=== PATIENT | female | born 1945 | race Caucasian/White ===

== ENCOUNTER 2017-04-08 09:31 | Inpatient (IN) | payer MEDICARE, BC ==
--- NOTE | 2017-04-08 10:05 | RAD ---
HISTORY: Chest pain COMPARISONS: March 27, 2006 VIEWS: 1: frontal portable view of the chest at 9:55 AM FINDINGS: LINES AND TUBES: None. CARDIOMEDIASTINAL SILHOUETTE: The cardiomediastinal silhouette is normal for portable technique. PLEURA: The costophrenic angles are sharp. No pleural abnormalities are noted. LUNG PARENCHYMA: The lungs are clear. ABDOMEN: The upper abdomen is clear. There is no subphrenic gas. BONES AND SOFT TISSUES: No bone or soft tissue abnormalities are noted. IMPRESSION: NO ACTIVE CARDIOPULMONARY DISEASE.
[2017-04-08 10:34] LABS: ABS Basophils 0 10^3/ul (0-0.2); ABS Eosinophils 0.1 10^3/ul (0-0.6); ABS Lymphocytes 1.8 10^3/ul (1.0-4.8); ABS Monocytes 0.7 10^3/ul (0-0.8); ABS Nucleated RBC 0 10^3/ul; Hematocrit 42 % (35-47); Hemoglobin 13.9 g/dl (12.0-16.0); Lymphocyte % 15.7 % (25-47); Mean Corpuscular HGB Conc 33 g/dl (31-36); Mean Corpuscular Hemoglobin 30 pg (27-31); Mean Corpuscular Volume 89 fL (80-97); Mean Platelet Volume 8 um3 (7.4-10.4); Nucleated Red Blood Cells % 0; Platelet Count 299 10^3/ul (150-450); Red Cell Distribution Width 14 % (10.5-15); White Blood Count 11.6 10^3/ul (3.5-10.8)
[2017-04-08 10:50] LABS: EGFR Non-African American 75.2 (>60)
[2017-04-08] MEDS ORDERED: Nitroglycerin TAB 0.4 MG* 0.4 MG TAB SL ONE (15:25)
[2017-04-08] MEDS ORDERED: Famotidine IV * 20 MG in NS 0.9% 100 ML* 100 ML IVPB SCH (15:34)
[2017-04-08] MEDS: Famotidine IV* 10 MG/ML 2 ML (20 mg) IV SCH ×2 (16:13→20:17)
[2017-04-08] MEDS ORDERED: Ondansetron INJ* 2 MG/ML VIAL IV PRN (17:15)
[2017-04-08] MEDS ORDERED: Morphine INJ* 2 MG/ML 1 ML SYRINGE (TWO MG - NEW SYRINGE VERSION) ONE (17:26)
[2017-04-08] MEDS: Morphine INJ* 2 MG/ML 1 ML SYRINGE (TWO MG - NEW SYRINGE VERSION) IV PRN (17:27)
--- NOTE | 2017-04-08 17:30 | ED ---
Claude Morales Angela, scribed for Catracho Pinedo MD on 04/08/17 at 0953 . HPI Chest Pain - HPI Summary HPI Summary: This pt is a 72 y/o female [facility] c/o chest pain since yesterday. At onset of her pain, she was at rest. She states she had difficult sleeping when laying down secondary to pain. Pt describes her pain as burning. Additionally notes nausea and vomiting this morning. Pt rates her pain 6 or 7 out of 10 in severity. She denies abd pain, dizziness, SOB. - History of Current Complaint Chief Complaint: EDChestPainROMI Time Seen by Provider: 04/08/17 09:44 Hx Obtained From: Patient Onset/Duration: Started Hours Ago, Still Present Timing: Constant, Lasting Hours Current Severity: Moderate Pain Intensity: 6 Pain Scale Used: 0-10 Numeric Chest Pain Location: Diffuse Chest Pain Radiates: No Character: Burning Aggravating Factor(s): Nothing Alleviating Factor(s): Nothing Associated Signs and Symptoms: Positive: Chest Pain, Nausea, Vomiting, Other: - NEG: dizziness. Negative: Shortness of Breath, Abdominal Pain - Allergy/Home Medications Allergies/Adverse Reactions: Allergies Allergy/AdvReac Type Severity Reaction Status Date / Time No Known Allergies Allergy Verified 03/02/14 19:16 Home Medications: Home Medications ALPRAZolam TAB* [Xanax TAB*] 0.5 mg PO BID PRN 04/08/17 [History Confirmed 04/08] Aspirin EC Low Dose* [Ecotrin EC Low Dose 81 MG*] 81 mg PO DAILY 04/08/17 [ History Confirmed 04/08/17] FLUoxetine CAP* [PROzac CAP*] 20 mg PO BID 04/08/17 [History Confirmed 04/08/17] Simvastatin TAB(NF) [Zocor(NF)] 20 mg PO BEDTIME 04/08/17 [History Confirmed ] amLODIPine TAB* [Norvasc 5 mg TAB*] 5 mg PO DAILY 04/08/17 [History Confirmed ] PMH/Surg Hx/FS Hx/Imm Hx Endocrine/Hematology History: Denies: Hx Diabetes Cardiovascular History: Denies: Hx Hypertension, Hx Pacemaker/ICD Sensory History: Denies: Hx Hearing Aid Psychiatric History: Denies: Hx Panic Disorder - Surgical History Surgery Procedure, Year, and Place: 1997- (1) GDC 10 SOFT SR & (2)360 - CONDITIONAL 5 UP TO 3T ANUERYSM COILS (PER 2012 REFERENCE MANUAL FOR MRI SAFETY) Infectious Disease History: No Infectious Disease History: Denies: Traveled Outside the [place] in Last 30 Days - Family History Known Family History: Positive: Cardiac Disease - Father: MS and CVA - Social History Alcohol Use: None Substance Use Type: Reports: None Smoking Status (MU): Former Smoker Review of Systems Negative: Fever, Chills Positive: Chest Pain Negative: Shortness Of Breath Positive: Vomiting, Nausea. Negative: Abdominal Pain Neurological: Other - NEG: dizziness All Other Systems Reviewed And Are Negative: Yes Physical Exam - Summary Physical Exam Summary: VITAL SIGNS: Reviewed. GENERAL: Patient is a well-developed and nourished female who is lying comfortable in the stretcher. Patient is not in any acute respiratory distress. HEAD AND FACE: No signs of trauma. No ecchymosis, hematomas or skull depressions. No sinus tenderness. EYES: PERRLA, EOMI x 2, No injected conjunctiva, no nystagmus. EARS: Hearing grossly intact. Ear canals and tympanic membranes are within normal limits. MOUTH: Oropharynx within normal limits. NECK: Supple, trachea is midline, no adenopathy, no JVD, no carotid bruit, no c- spine tenderness, neck with full ROM. CHEST: Symmetric, no tenderness at palpation LUNGS: Clear to auscultation bilaterally. No wheezing or crackles. CVS: Regular rate and rhythm, S1 and S2 present, no murmurs or gallops appreciated. ABDOMEN: Soft, non-tender. No signs of distention. No rebound no guarding, and no masses palpated. Bowel sounds are normal. EXTREMITIES: FROM in all major joints, no edema, no cyanosis or clubbing. NEURO: Alert and oriented x 3. No acute neurological deficits. Speech is normal and follows commands. SKIN: Dry and warm Triage Information Reviewed: Yes Vital Signs On Initial Exam: Initial Vitals Temp Pulse Resp BP Pulse Ox 98.6 F 90 18 180/92 100 04/08/17 09:33 04/08/17 09:33 04/08/17 09:33 04/08/17 09:33 04/08/17 09:33 Vital Signs Reviewed: Yes Diagnostics - Vital Signs Vital Signs Temp Pulse Resp BP Pulse Ox 01/22/18 09:33 98.6 F 90 18 180/92 100 - Laboratory Lab Results: Lab Results 04/08/17 04/08/17 04/08/17 Range/Units 10:12 10:12 10:12 WBC (3.5-10.8) 10^3/ul RBC (4.0-5.4) 10^6/ul Hgb (12.0-16.0) g/dl Hct (35-47) % MCV (80-97) fL MCH (27-31) pg MCHC (31-36) g/dl RDW (10.5-15) % Plt Count (150-450) 10^3/ul MPV (7.4-10.4) um3 Neut % (Auto) (38-83) % Lymph % (Auto) (25-47) % Giles % (Auto) (1-9) % Eos % (Auto) (0-6) % Baso % (Auto) (0-2) % Absolute Neuts (auto) (1.5-7.7) 10^3/ul Absolute Lymphs (auto) (1.0-4.8) 10^3/ul Absolute Monos (auto) (0-0.8) 10^3/ul Absolute Eos (auto) (0-0.6) 10^3/ul Absolute Basos (auto) (0-0.2) 10^3/ul Absolute Nucleated RBC 10^3/ul Nucleated RBC % APTT 31.5 (26.0-36.3) seconds Sodium 137 (133-145) mmol/L Potassium 3.9 (3.5-5.0) mmol/L Chloride 105 (101-111) mmol/L Carbon Dioxide 24 (22-32) mmol/L Anion Gap 8 (2-11) mmol/L BUN 25 H (6-24) mg/dL Creatinine 0.76 (0.51-0.95) mg/dL Est GFR ( Amer) 96.8 (>60) Est GFR (Non-Af Amer) 75.2 (>60) BUN/Creatinine Ratio 32.9 H (8-20) Glucose 110 H (70-100) mg/dL Calcium 9.8 (8.6-10.3) mg/dL Magnesium 2.0 (1.9-2.7) mg/dL Total Bilirubin 0.30 (0.2-1.0) mg/dL AST 14 (13-39) U/L ALT 13 (7-52) U/L Alkaline Phosphatase 68 (34-104) U/L Total Creatine Kinase 45 (10-223) U/L CK-MB (CK-2) 2.7 (0.6-6.3) ng/mL Troponin I 0.07 H* (<0.04) ng/mL B-Natriuretic Peptide 139 H ( - 100) pg/mL Total Protein 7.1 (6.4-8.9) g/dL Albumin 4.2 (3.2-5.2) g/dL Globulin 2.9 (2-4) g/dL Albumin/Globulin Ratio 1.4 (1-3) TSH 1.81 (0.34-5.60) mcIU/mL Thyroxine (T4) 9.21 (6.09-12.23) mcg/mL 04/08/17 Range/Units 10:12 WBC 11.6 H (3.5-10.8) 10^3/ul RBC 4.70 (4.0-5.4) 10^6/ul Hgb 13.9 (12.0-16.0) g/dl Hct 42 (35-47) % MCV 89 (80-97) fL MCH 30 (27-31) pg MCHC 33 (31-36) g/dl RDW 14 (10.5-15) % Plt Count 299 (150-450) 10^3/ul MPV 8 (7.4-10.4) um3 Neut % (Auto) 77.1 (38-83) % Lymph % (Auto) 15.7 L (25-47) % Giles % (Auto) 5.8 (1-9) % Eos % (Auto) 1.0 (0-6) % Baso % (Auto) 0.4 (0-2) % Absolute Neuts (auto) 9.0 H (1.5-7.7) 10^3/ul Absolute Lymphs (auto) 1.8 (1.0-4.8) 10^3/ul Absolute Monos (auto) 0.7 (0-0.8) 10^3/ul Absolute Eos (auto) 0.1 (0-0.6) 10^3/ul Absolute Basos (auto) 0 (0-0.2) 10^3/ul Absolute Nucleated RBC 0 10^3/ul Nucleated RBC % 0 APTT (26.0-36.3) seconds Sodium (133-145) mmol/L Potassium (3.5-5.0) mmol/L Chloride (101-111) mmol/L Carbon Dioxide (22-32) mmol/L Anion Gap (2-11) mmol/L BUN (6-24) mg/dL Creatinine (0.51-0.95) mg/dL Est GFR ( Amer) (>60) Est GFR (Non-Af Amer) (>60) BUN/Creatinine Ratio (8-20) Glucose (70-100) mg/dL Calcium (8.6-10.3) mg/dL Magnesium (1.9-2.7) mg/dL Total Bilirubin (0.2-1.0) mg/dL AST (13-39) U/L ALT (7-52) U/L Alkaline Phosphatase (34-104) U/L Total Creatine Kinase (10-223) U/L CK-MB (CK-2) (0.6-6.3) ng/mL Troponin I (<0.04) ng/mL B-Natriuretic Peptide ( - 100) pg/mL Total Protein (6.4-8.9) g/dL Albumin (3.2-5.2) g/dL Globulin (2-4) g/dL Albumin/Globulin Ratio (1-3) TSH (0.34-5.60) mcIU/mL Thyroxine (T4) (6.09-12.23) mcg/mL Result Diagrams: 04/08/17 10:12 04/08/17 10:12 Lab Statement: Any lab studies that have been ordered have been reviewed, and results considered in the medical decision making process. - Radiology Chest XR Xray Interpretation: No Acute Changes - IMPRESSION: No active cardiopulmonary disease. Dr. Pinedo has reviewed this radiology report. Radiology Interpretation Completed By: Radiologist - EKG 0905 Cardiac Rate: NL EKG Rhythm: Sinus Rhythm - at 73 bpm EKG Interpretation: No ST elevations. Chest Pain Course/Dx - Course Course Of Treatment: This pt is a 72 y/o female presenting to [facility] c/o chest pain since yesterday. At onset of her pain, she was at rest. She states she had difficult sleeping when laying down secondary to pain. Pt describes her pain as burning. Additionally notes nausea and vomiting this morning. Pt rates her pain 6 or 7 out of 10 in severity. She denies abd pain, dizziness, SOB. Test results without any significant abnormalities, except for WBC of 11.6, troponin of 0.07, BNP of 139. In the ED course, the pts chest pain is rated 1/10 and most of her symptoms have resolved. I discussed pts case with Dr. Quintanilla, hospitalist, because of her multiple comorbidities to be admitted to rule out acute coronary syndrome. Pt is hemodynamically stable, alert and oriented x3. - Chest Pain Differential Diagnosis/HQI/PQRI: Acute MS, ACS, Angina, CHF, Chest Wall, GI Disease, Lower Respiratory Infection - Diagnoses Provider Diagnoses: Chest pain, rule out ACS - Provider Notifications Discussed Care Of Patient With: Saarvanan Quintanilla Time Discussed With Above Provider: 11:31 Instructed by Provider To: Other - I discussed pt care with Dr. Quintanilla, hospitalist, who has agreed to admit the pt. Discharge - Discharge Plan Condition: Stable Disposition: ADMITTED TO [facility] The documentation as recorded by the Claude cain Angela accurately reflects the service I personally performed and the decisions made by me, Catracho Pinedo MD.
[2017-04-08] MEDS: Nitroglycerin TAB 0.4 MG* 0.4 MG TAB SL PRN ×2 (17:55→18:32)
[2017-04-08] MEDS ORDERED: Metoprolol Tartrate TAB* 25 MG ONE (19:57)
[2017-04-08] MEDS ORDERED: Nitroglycerin 2% OINT* 1 GM PAK ONE (19:59)
[2017-04-08] MEDS: Metoprolol Tartrate TAB* 25 MG PO SCH (20:08)
[2017-04-08] MEDS: Nitroglycerin 2% OINT* 1 GM PAK TOPICAL SCH (20:35)
[2017-04-08] MEDS ORDERED: Atorvastatin* 10 MG TAB PO SCH (21:00)
--- NOTE | 2017-04-08 22:09 | HP ---
HISTORY AND PHYSICAL: DATE OF ADMISSION: 04/08/17 ADMITTING PHYSICIAN: Familia Quintanilla MD * (DICTATED BY SOHAIL GIVENS NP) PRIMARY CARE PHYSICIAN: Dr. Zambrano. HISTORY OF PRESENT ILLNESS: This is a very pleasant 72-year-old female patient who reports having gone to the Urgent Care earlier in the day today for complaints of midsternal chest burning and pressure. The patient states she has experienced similar symptoms earlier in the month, had gone to the Urgent Care then as well and received a prescription for proton pump inhibitor and was told to follow up with her primary care physician. The patient states that she ran out of her medications and began to feel that burning chest sensation again and decided to go back to Urgent Care in hopes of getting another prescription for proton pump inhibitor. However, when she went there, she did receive an EKG and was told that she had changes on her EKG and she was referred to the emergency department for further evaluation. Upon arriving in the emergency department, an EKG was obtained as well as troponins. EKG showed some nonspecific or perhaps anterolateral depressions and also an initial troponin of 0.09. The patient was referred for inpatient admission to rule out acute coronary syndrome. PAST MEDICAL HISTORY: Significant for hypertension, hyperlipidemia, anxiety, cerebral aneurysm. Short-term TIA postoperatively after her surgery for aneurysm. The patient has history of pacemaker and defibrillator, insertion date unknown. PAST SURGICAL HISTORY: Significant for coil with intercerebral hemorrhage rupture of aneurysm in 2006. MEDICATIONS AT HOME: Include: 1. Simvastatin 20 mg daily. 2. Norvasc 5 mg daily. 3. Prozac 40 mg daily. 4. Aspirin 325 mg daily. 5. Xanax 0.5 mg 2 times a day as needed. ALLERGIES: The patient has no known drug allergies. FAMILY HISTORY: Significant for father with coronary artery disease and myocardial infarction. SOCIAL HISTORY: The patient has a remote history of smoking. States that she did smoke from a young age and quit in 2006 when she had her cerebral aneurysm. Does not drink any alcohol, denies any illicit drug use. She is retired. Used to work for the [employer]. REVIEW OF SYSTEMS: The patient denies any headache, fever, fatigue, or chills. Complains of midsternal chest burning sensation, upon exam radiating to the left axilla. Some epigastric pain as well. No nausea, no vomiting. No urinary complaints. No arthralgias or myalgias and no further constitutional complaints. PHYSICAL EXAMINATION GENERAL: The patient is awake and alert. Mildly anxious, but no acute distress. VITAL SIGNS: Temperature 98.0, heart rate 79, respiratory rate 24, oxygen saturation 96% on room air, blood pressure 148/61. HEENT: The patient is atraumatic, normocephalic. PERRLA. Nonicteric sclera. NECK: Supple. Nontender. No JVD noted. No carotid bruits auscultated and no thyromegaly appreciated. LUNGS: Clear bilaterally to auscultation with no wheezing, rhonchi or rales. She is mildly diminished at the bases and clear otherwise throughout her lung hooper. CARDIOVASCULAR: S1, S2 are present. No murmurs, gallops or rubs appreciated. Rate and rhythm are regular. On telemetry, she is in regular sinus rhythm underlying with pacing. ABDOMEN: Soft, nontender, nondistended. Positive bowel sounds in all 4 quadrants. She is moderately obese. No hepatosplenomegaly appreciated. : Deferred. MUSCULOSKELETAL: There is no clubbing, no cyanosis, no edema. She has +2 distal pulses palpable and intact. Gross motor and sensation are also intact. NEUROLOGIC: She is grossly intact with no focal deficits. PSYCHIATRY: She is cooperative and appropriate, although mildly anxious. LABORATORY DATA: In the ED revealed WBC 11.6, RBC 4.7, hemoglobin 13.9, hematocrit 42, platelets 299. Chemistries: Sodium 137, potassium 3.9, chloride 105, carbon dioxide 24, BUN 25, creatinine 0.76, glucose 110. Calcium 9.8, magnesium 2.0, bilirubin 0.30. AST 14, ALT 13, alk phosphatase 68. CK-MB 2.7, troponin 0.07. Second troponin 0.16. BNP is 139, total protein 7.1, albumin 4.2, globulin 2.9. TSH is 1.81 and thyroxine is 9.21. APTT is 31.5. IMAGING: Chest x-ray shows no active cardiopulmonary disease. First EKG dated 09:36 this morning, shows sinus rhythm with a normal P axis, ventricular rate of , with an abnormal R-wave progression and early transition. V2 with borderline ST depression, lateral leads ST, aVL, V5 and V6. Followup EKG timed 1437 while she was having active chest pain shows sinus rhythm with a normal P axis, ventricular rate of , minimal ST depression in the anterolateral leads. AVL, V2 to V6 is baseline wander in lead V3. IMPRESSION: This is a 72-year-old female patient with active chest pain, borderline positive troponins, also has history of gastroesophageal reflux disease with recent history of ruptured cerebral aneurysm, now being admitted for chest pain, rule out acute coronary syndrome. The patient will be admitted inpatient, placed on telemetry. DIAGNOSES: 1. Chest pain: Rule out acute coronary syndrome. We have cycled 2 troponins already. She will have a third at 5:30 tonight. She will receive nitroglycerin to see if this relieves her chest pain. She is on telemetry. Followup EKG has been performed. I have had a discussion with Dr. Jayy Hughes from Cardiology. He is recommending n.p.o. after midnight depending on the third troponin. If it remains not too elevated, she will likely have Lexiscan in the morning. 2. Hypertension: She will be continued on her Norvasc. 3. History of hyperlipidemia: She will be continued on her simvastatin. 4. History of gastroesophageal reflux disease: I have started her on IV H2 antagonist 2 times a day to see also if this alleviates some of her symptoms. 5. History of anxiety: She will be continued on her Norvasc and her Xanax as needed. 6. History of aneurysm with intracranial hemorrhage and coiling. The patient did say she had a transient ischemic attack in the past. She does take high dose aspirin 325 mg a day. She had her aspirin for today. We will wait until after her Lexiscan in the morning and then talk to Cardiology about continued aspirin usage. The rest of patient's course will be determined by further diagnostic, laboratories and any other input from other providers as warranted during this admission. We will continue to monitor the patient closely and identify any other issues as they come up. SOHAIL GIVENS NP [id number]/[facility] #: [id number] TOMMIE
[2017-04-08] MEDS: ALPRAZolam TAB* 0.5 MG PO PRN (23:12)
[2017-04-09] MEDS: Nitro Patch/OINT Remove PATCH OFF SCH (02:22)
[2017-04-09] MEDS ORDERED: Nitroglycerin TAB 0.4 MG* 0.4 MG TAB SL ONE (05:00)
[2017-04-09] MEDS: Metoprolol Tartrate TAB* 25 MG PO SCH ×3 (08:00→21:43)
[2017-04-09] MEDS: amLODIPine TAB* 5 MG PO SCH (08:01)
[2017-04-09] MEDS: Famotidine IV* 10 MG/ML 2 ML (20 mg) IV SCH ×2 (08:01→21:46)
[2017-04-09] MEDS: FLUoxetine CAP* 20 MG PO SCH (08:01)
--- NOTE | 2017-04-09 08:08 | PN ---
Subjective Date of Service: 04/09/17 Interval History: Patient seen and examined. Overnight notes/events reviewed. No chest pain this morning, NTG paste remains, no further sublingual given after 0430. Trops leveled off overnight at 0.23/0.22. Patient comfortable but states she is tired and didn't sleep much. Denies SOB, no n/v, no weakness or headache. No further complaints. Remains NPO for lexiscan this AM. Objective Active Medications: Alprazolam (Xanax Tab*) 0.5 mg PO BID PRN PRN Reason: ANXIETY Last Admin: 04/08/17 23:12 Dose: 0.5 mg Amlodipine Besylate (Norvasc Tab*) 5 mg PO DAILY [facility] Atorvastatin Calcium (Lipitor*) 10 mg PO BEDTIME [facility] Last Admin: 04/08/17 20:10 Dose: 10 mg Famotidine (Pepcid Iv*) 20 mg IV BID [facility] Last Admin: 04/08/17 20:17 Dose: 20 mg Fluoxetine HCl (Prozac Cap*) 40 mg PO DAILY [facility] Influenza Virus Vaccine (Fluarix *Quad* *) 0.5 ml IM .ONCE ONE Stop: 04/09/17 09:01 Metoprolol Tartrate (Lopressor Tab*) 12.5 mg PO 0900,2100 [facility] Last Admin: 04/09/17 08:00 Dose: Not Given Morphine Sulfate (Morphine Inj (Syringe)*) 2 mg IV Q2H PRN PRN Reason: PAIN Last Admin: 04/08/17 17:27 Dose: 2 mg Nitroglycerin (Nitroglycerin 2% Oint*) 0.5 inch TOPICAL 2014 [facility] PRN Reason: Protocol Last Admin: 04/08/17 20:35 Dose: Not Given Ondansetron HCl (Zofran Inj*) 4 mg IV Q6H PRN PRN Reason: NAUSEA Pharmacy Profile Note (Nitro Patch/Oint Remove*) 1 note PATCH OFF 214 [facility] Last Admin: 04/09/17 02:22 Dose: 1 note Vital Signs - 8 hr 04/09/17 04/09/17 04/09/17 01:10 03:42 07:45 Temperature 97.7 F 98.4 F Pulse Rate 73 76 Respiratory 16 16 16 Rate Blood Pressure 153/74 138/61 (mmHg) O2 Sat by Pulse 98 100 Oximetry Oxygen Devices in Use Now: Nasal Cannula - intermittent NC use @2L Appearance: Alert, NAD, comfortable, ambulatory Eyes: No Scleral Icterus, PERRLA Ears/Nose/Mouth/Throat: NL Teeth, Lips, Gums, Mucous Membranes Moist Neck: NL Appearance and Movements; NL JVP, Trachea Midline Respiratory: Symmetrical Chest Expansion and Respiratory Effort, Clear to Auscultation Cardiovascular: NL Sounds; No Murmurs; No JVD, RRR - telemetry reviewed, no ectopy overnight Extremities: No Edema, No Clubbing, Cyanosis Skin: No Rash or Ulcers Neurological: Alert and Oriented x 3 Result Diagrams: 04/08/17 10:12 04/08/17 10:12 Additional Lab and Data: Lab Results 04/08/17 04/08/17 04/08/17 Range/Units 10:12 10:12 10:12 WBC (3.5-10.8) 10^3/ul RBC (4.0-5.4) 10^6/ul Hgb (12.0-16.0) g/dl Hct (35-47) % MCV (80-97) fL MCH (27-31) pg MCHC (31-36) g/dl RDW (10.5-15) % Plt Count (150-450) 10^3/ul MPV (7.4-10.4) um3 Neut % (Auto) (38-83) % Lymph % (Auto) (25-47) % Barber % (Auto) (1-9) % Eos % (Auto) (0-6) % Baso % (Auto) (0-2) % Absolute Neuts (auto) (1.5-7.7) 10^3/ul Absolute Lymphs (auto) (1.0-4.8) 10^3/ul Absolute Monos (auto) (0-0.8) 10^3/ul Absolute Eos (auto) (0-0.6) 10^3/ul Absolute Basos (auto) (0-0.2) 10^3/ul Absolute Nucleated RBC 10^3/ul Nucleated RBC % APTT 31.5 (26.0-36.3) seconds Sodium 137 (133-145) mmol/L Potassium 3.9 (3.5-5.0) mmol/L Chloride 105 (101-111) mmol/L Carbon Dioxide 24 (22-32) mmol/L Anion Gap 8 (2-11) mmol/L BUN 25 H (6-24) mg/dL Creatinine 0.76 (0.51-0.95) mg/dL Est GFR ( Amer) 96.8 (>60) Est GFR (Non-Af Amer) 75.2 (>60) BUN/Creatinine Ratio 32.9 H (8-20) Glucose 110 H (70-100) mg/dL Calcium 9.8 (8.6-10.3) mg/dL Magnesium 2.0 (1.9-2.7) mg/dL Total Bilirubin 0.30 (0.2-1.0) mg/dL AST 14 (13-39) U/L ALT 13 (7-52) U/L Alkaline Phosphatase 68 (34-104) U/L Total Creatine Kinase 45 (10-223) U/L CK-MB (CK-2) 2.7 (0.6-6.3) ng/mL Troponin I 0.07 H* (<0.04) ng/mL B-Natriuretic Peptide 139 H ( - 100) pg/mL Total Protein 7.1 (6.4-8.9) g/dL Albumin 4.2 (3.2-5.2) g/dL Globulin 2.9 (2-4) g/dL Albumin/Globulin Ratio 1.4 (1-3) TSH 1.81 (0.34-5.60) mcIU/mL Thyroxine (T4) 9.21 (6.09-12.23) mcg/mL 04/08/17 Range/Units 10:12 WBC 11.6 H (3.5-10.8) 10^3/ul RBC 4.70 (4.0-5.4) 10^6/ul Hgb 13.9 (12.0-16.0) g/dl Hct 42 (35-47) % MCV 89 (80-97) fL MCH 30 (27-31) pg MCHC 33 (31-36) g/dl RDW 14 (10.5-15) % Plt Count 299 (150-450) 10^3/ul MPV 8 (7.4-10.4) um3 Neut % (Auto) 77.1 (38-83) % Lymph % (Auto) 15.7 L (25-47) % Barber % (Auto) 5.8 (1-9) % Eos % (Auto) 1.0 (0-6) % Baso % (Auto) 0.4 (0-2) % Absolute Neuts (auto) 9.0 H (1.5-7.7) 10^3/ul Absolute Lymphs (auto) 1.8 (1.0-4.8) 10^3/ul Absolute Monos (auto) 0.7 (0-0.8) 10^3/ul Absolute Eos (auto) 0.1 (0-0.6) 10^3/ul Absolute Basos (auto) 0 (0-0.2) 10^3/ul Absolute Nucleated RBC 0 10^3/ul Nucleated RBC % 0 APTT (26.0-36.3) seconds Sodium (133-145) mmol/L Potassium (3.5-5.0) mmol/L Chloride (101-111) mmol/L Carbon Dioxide (22-32) mmol/L Anion Gap (2-11) mmol/L BUN (6-24) mg/dL Creatinine (0.51-0.95) mg/dL Est GFR ( Amer) (>60) Est GFR (Non-Af Amer) (>60) BUN/Creatinine Ratio (8-20) Glucose (70-100) mg/dL Calcium (8.6-10.3) mg/dL Magnesium (1.9-2.7) mg/dL Total Bilirubin (0.2-1.0) mg/dL AST (13-39) U/L ALT (7-52) U/L Alkaline Phosphatase (34-104) U/L Total Creatine Kinase (10-223) U/L CK-MB (CK-2) (0.6-6.3) ng/mL Troponin I (<0.04) ng/mL B-Natriuretic Peptide ( - 100) pg/mL Total Protein (6.4-8.9) g/dL Albumin (3.2-5.2) g/dL Globulin (2-4) g/dL Albumin/Globulin Ratio (1-3) TSH (0.34-5.60) mcIU/mL Thyroxine (T4) (6.09-12.23) mcg/mL EKG Data: EKG INTERPRETATION ECG Report Patient Name ABDIAZIZ ADAMS Birthdate 1945 Sex F Order Number [id number] Date of ECG 04/09/2017 04:16:12 Interpretation Sinus rhythm.normal P axis, V-rate 60- 99 Borderline repolarization - BORDERLINE ECG - ECG NEEDS E-SIGNING Please [facility] to view the EKG image Assess/Plan/Problems-Billing Assessment: This is a 72 year old female with hx of HTN, ICH 2/2 aneurysm, anxiety and HLP that presented with midsternal chest burning, radiating to left axilla with positive troponins. - Patient Problems (1) Chest pain Code(s): R07.9 - CHEST PAIN, UNSPECIFIED SNOMED Code(s): 97857970 Comment: - Positive troponins - Required multiple doses of NTG, relief with NTG paste and morphine last night - Zofran for nausea PRN - O2 PRN - NPO for lexiscan today - Cardiology consulted - Hold BB this AM in light of stress test - TSH = 1.81 will check lipids (2) Hypertension Code(s): I10 - ESSENTIAL (PRIMARY) HYPERTENSION SNOMED Code(s): 45262989 Comment: - Continue norvasc - Hold metoprolol until after stress (3) Anxiety Code(s): F41.9 - ANXIETY DISORDER, UNSPECIFIED SNOMED Code(s): 97693656 Comment: - Continue prozac daily and xanax PRN (4) History of cerebral aneurysm repair Code(s): Z98.890 - OTHER SPECIFIED POSTPROCEDURAL STATES; Z86.79 - PERSONAL HISTORY OF OTHER DISEASES OF THE CIRCULATORY SYSTEM SNOMED Code(s): 453990394 Comment: - ICH in 2006, s/p coil in 2006, stable (5) GERD (gastroesophageal reflux disease) Code(s): K21.9 - GASTRO-ESOPHAGEAL REFLUX DISEASE WITHOUT ESOPHAGITIS SNOMED Code(s): 455800122 Comment: - Continue pepcid IV BID, transition to PO after cardiac workup complete Status and Disposition: Remain inpatient. Counseling and/or Coordination of Care Minutes: Coordinated with patient and AMY Cross
[2017-04-09] MEDS ORDERED: Pneumococcal *Vac Polyvalent 0.5 ML VIAL IM ONE (09:00)
[2017-04-09] MEDS ORDERED: Aspirin EC Low Dose* 81 MG TAB.EC PO SCH (09:00)
[2017-04-09] MEDS ORDERED: Influenza VAC *QUAD* 2017-18* 0.5 ML SYRINGE IM ONE (09:00)
[2017-04-09] MEDS ORDERED: Regadenoson* 0.4 MG/5 ML SYRINGE ONE (12:27)
[2017-04-09] MEDS ORDERED: Aminophylline IV* 25 MG/ML 10 ML VIAL ONE (12:27)
--- NOTE | 2017-04-09 14:27 | RAD ---
Edited for charges. INDICATION: Chest pain COMPARISON: None TECHNIQUE: A single day SPECT protocol was utilized. Rest images were acquired following the intravenous injection of 10.2 millicuries of technetium 99m tetrofosmin. Pharmacologic stress images were acquired following the intravenous administration of 25.4 millicuries of technetium 99m tetrofosmin. FINDINGS: There is a moderate-sized lateral wall defect with findings suspicious for small amount of rahul-infarct ischemia. The cardiac chamber size is normal. There are no discernible wall motion abnormalities. The ejection fraction is calculated at 57 percent during stress. IMPRESSION: MODERATE-SIZED LATERAL WALL DEFECT PERHAPS WITH A SMALL AMOUNT OF RAHUL-INFARCT ISCHEMIC CHANGE ASSESSMENT: INTERMEDIATE-RISK Based on imaging criteria from ACC/AHA 2002 Guideline Update for the Management of Patients With Chronic Stable Angina Table 23. Noninvasive Risk Stratification. MTDD
[2017-04-09] MEDS ORDERED: diPHENhydraMINE PO* 25 MG PO ONE (15:14)
[2017-04-09] MEDS ORDERED: Diazepam TAB(*) 5 MG PO ONE (15:14)
[2017-04-09] MEDS ORDERED: NS 0.9% 1000 ML* 1,000 ML IV SCH (15:15)
[2017-04-09] MEDS ORDERED: Enoxaparin(*) 100 MG/ML SYR SUBCUT ONE (15:47)
--- NOTE | 2017-04-09 20:24 | CONS ---
CC: Ulises Zambrano MD.* CARDIOLOGY CONSULTATION: DATE OF CONSULT: 04/09/17. INDICATION FOR CONSULTATION: Acute coronary syndrome and chest pain. HISTORY OF PRESENT ILLNESS: The patient is a 72-year-old female with no cardiac history who came to [facility] because of chest pain. Patient is a little confused as to when the chest pain actually started. Originally, she said that she had chest pain on Saturday and went to [facility] and was transported to the hospital. However, it was just yesterday, on Saturday, the , that she had a visit to [facility] and then was transported to the emergency room. It is unclear how long she actually has had this discomfort. She reports that it just started yesterday. She describes the discomfort at the center of her chest, radiating to her left shoulder. It is a burning sensation in her chest. It is on and off throughout the day. She did take Tums for this discomfort, which did not relieve her discomfort. She denied any diaphoresis. She denied any nausea or vomiting associated with it. She has no history of similar discomfort. The patient was referred to the emergency room where she was given an aspirin and sublingual nitroglycerin which relieved her discomfort. Yesterday afternoon, she had return of the same discomfort, she had a nitroglycerin paste placed at that time, which relieved the discomfort. PAST MEDICAL HISTORY: Significant for hypertension, hyperlipidemia, anxiety. She does have short-term memory issues secondary to cerebral brain aneurysm, which was repaired in 2006. She did have a postoperative TIA. The patient is followed by Dr. Vasquez Vicente, neurosurgeon, [facility]. I have placed a call to him. OUTPATIENT MEDICATIONS: 1. Simvastatin 20 mg a day. 2. Norvasc 5 mg a day. 3. Prozac 40 mg a day. 4. Aspirin 325 a day. 5. Xanax as needed. ALLERGIES: No known drug allergies. FAMILY HISTORY: Her father does have a history of coronary artery disease and a myocardial infarction. SOCIAL HISTORY: The patient has a distant history of smoking, she quit in 2006. Denies alcohol use. She is currently retired. PHYSICAL EXAM: Height is 5 feet 5 inches, weight 221 pounds, temperature 97.6, heart rate is 75, blood pressure 130/69, respiratory rate is 16, oxygen saturation 98% on room air. Sclerae anicteric. Oropharynx is pink without erythema. Carotids are 2+ without bruits. JVD is normal. Thyroid is normal. Cardiac Exam: S1, S2 without any murmurs, rubs, or gallops. Lungs are clear to auscultation bilaterally. There is no dullness to percussion. Abdomen is soft , nontender, nondistended with normoactive bowel sounds. Extremities show 1+ edema. She has 2+ pulses throughout. The patient is awake and alert and oriented. She moves all 4 extremities equally. DIAGNOSTIC STUDIES/LAB DATA: CBC within normal limits. Chemistry is within normal limits. BUN 25, creatinine 0.76. AST and ALT are normal. Troponin level, again her peak troponin was 0.23. BNP is 139. Total cholesterol 177. LDL of 106, HDL of 43, TSH 1.8. Her EKG shows normal sinus rhythm with nonspecific T-wave abnormalities. IMPRESSION: This is a 72-year-old female with a history of hypertension, hyperlipidemia, was admitted to the hospital with typical anginal-type symptoms. Patient's EKG does not show an acute myocardial infarction. Her troponin levels are minimally elevated. Given the patient's history of brain aneurysm, I do not think anticoagulation is necessary right at this time. I will schedule the patient for an exercise nuclear stress test. I have also placed a call to Dr. Vicente at [facility] to discuss with him the potential role for anticoagulation and antiplatelet medications for this patient. It is my recommendation that the patient be changed to Lipitor 40 mg a day for cholesterol control. Further recommendations pending results of her stress test. [id number]/[facility] #: [id number] [facility]
[2017-04-09] MEDS ORDERED: Atorvastatin* 40 MG TAB PO SCH (21:00)
[2017-04-09] MEDS ORDERED: Atorvastatin* 80 MG TAB PO SCH (21:00)
[2017-04-09] MEDS: Nitroglycerin 2% OINT* 1 GM PAK TOPICAL SCH (21:52)
[2017-04-09] MEDS: ALPRAZolam TAB* 0.5 MG PO PRN (22:12)
[2017-04-10] MEDS: Nitro Patch/OINT Remove PATCH OFF SCH (03:47)
[2017-04-10] MEDS: Metoprolol Tartrate TAB* 25 MG PO SCH ×3 (03:47→16:12)
[2017-04-10] MEDS ORDERED: NS 0.9% 1000 ML* 1,000 ML IV SCH ×3 (08:00→17:15)
[2017-04-10] MEDS: amLODIPine TAB* 5 MG PO SCH (08:20)
[2017-04-10] MEDS: FLUoxetine CAP* 20 MG PO SCH (08:21)
[2017-04-10] MEDS: Famotidine IV* 10 MG/ML 2 ML (20 mg) IV SCH ×2 (08:22→17:18)
[2017-04-10] MEDS ORDERED: Heparin(*) 1000 UNIT/ML 10 ML VIAL CATH LAB IV ONE (10:40)
[2017-04-10] MEDS ORDERED: fentaNYL* 50 MCG/ML 2 ML VIAL (100 MCG VIAL) ONE (10:40)
[2017-04-10] MEDS ORDERED: Iohexol 350 (CONTRAST) 200 ML MDV IV ONE (10:41)
[2017-04-10] MEDS ORDERED: nitroGLYCERIN DRIP* 25,000 MCG/250 ML BTL ONE (10:41)
[2017-04-10] MEDS ORDERED: Heparin 2 UNITS/ML IVPREMIX* 2,000 ML IV ONE (10:41)
[2017-04-10] MEDS ORDERED: VERAPAMIL 2.5 MG/ML 4 ML VIAL ONE (10:41)
[2017-04-10] MEDS ORDERED: Lidocaine 1% INJ* 10 MG/ML 30 ML SDV ONE (10:41)
[2017-04-10] MEDS ORDERED: Midazolam* 1 MG/ML 10 ML VIAL (10 MG) ONE (10:43)
[2017-04-10] MEDS ORDERED: Aspirin Low Dose CHEW TAB* 81 MG ONE (11:34)
[2017-04-10] MEDS ORDERED: Ondansetron INJ* 2 MG/ML VIAL ONE (12:17)
[2017-04-10] MEDS ORDERED: Glycerin ADULT SUPP PR PRN (14:53)
[2017-04-10] MEDS ORDERED: Enoxaparin(*) 100 MG/ML SYR SUBCUT SCH (15:00)
[2017-04-10] MEDS: ALPRAZolam TAB* 0.5 MG PO PRN (16:12)
[2017-04-10] MEDS: Morphine INJ* 2 MG/ML 1 ML SYRINGE (TWO MG - NEW SYRINGE VERSION) IV PRN (16:13)
[2017-04-10] MEDS ORDERED: Nitroglycerin TAB 0.4 MG* 0.4 MG TAB SL PRN (16:52)
[2017-04-10] MEDS ORDERED: Nitroglycerin 2% OINT* 1 GM PAK TOPICAL ONE (16:53)
[2017-04-10] MEDS ORDERED: Nitroglycerin TAB 0.4 MG* 0.4 MG TAB ONE (16:54)
--- NOTE | 2017-04-10 17:19 | PN ---
Subjective Date of Service: 04/10/17 Interval History: Patient seen and examined. Call from Dr. Hughes, patient had positive cath, 3 vessel disease, will be transferred to [place] when bed available. Dr. Hamilton accepting. Patient still having unstable angina since cath and complaint of constipation. Pain 7/10 and burning in quality, radiating to back/shoulder blades and vomited once again - similar to episode before stress test. NTG paste , IVF, morphine and oxygen ordered as well as bedrest. Objective Active Medications: Alprazolam (Xanax Tab*) 0.5 mg PO BID PRN PRN Reason: ANXIETY Last Admin: 04/10/17 16:12 Dose: 0.5 mg Amlodipine Besylate (Norvasc Tab*) 5 mg PO DAILY [facility] Last Admin: 04/10/17 08:20 Dose: 5 mg Atorvastatin Calcium (Lipitor*) 80 mg PO BEDTIME [facility] Last Admin: 04/09/17 21:42 Dose: 80 mg Enoxaparin Sodium (Lovenox(*)) 100 mg SUBCUT Q12H [facility] Last Admin: 04/10/17 16:10 Dose: 100 mg Famotidine (Pepcid Iv*) 20 mg IV BID [facility] Last Admin: 04/10/17 08:22 Dose: 20 mg Fluoxetine HCl (Prozac Cap*) 40 mg PO DAILY [facility] Last Admin: 04/10/17 08:21 Dose: 40 mg Glycerin (Glycerin Adult Supp*) 1 supp IN ONCE PRN PRN Reason: . Stop: 04/11/17 14:52 Sodium Chloride (Ns 0.9% 1000 Ml*) 1,000 mls @ 75 mls/hr IV PER RATE [facility] Metoprolol Tartrate (Lopressor Tab*) 25 mg PO Q6H [facility] Last Admin: 04/10/17 16:12 Dose: 25 mg Morphine Sulfate (Morphine Inj (Syringe)*) 2 mg IV Q2H PRN PRN Reason: PAIN Last Admin: 04/10/17 16:13 Dose: 2 mg Nitroglycerin (Nitroglycerin Tab 0.4 Mg*) 0.4 mg SL Q5M PRN PRN Reason: ANGINA Last Admin: 04/10/17 17:03 Dose: 0.4 mg Ondansetron HCl (Zofran Inj*) 4 mg IV Q6H PRN PRN Reason: NAUSEA Last Admin: 04/10/17 16:43 Dose: 4 mg Vital Signs - 8 hr 04/10/17 04/10/17 04/10/17 14:17 15:05 15:11 Temperature 97.3 F Pulse Rate 65 65 68 Respiratory Rate Blood Pressure 120/60 153/65 (mmHg) O2 Sat by Pulse 98 96 96 Oximetry 04/10/17 04/10/17 04/10/17 15:26 15:42 15:50 Temperature 97.6 F Pulse Rate 68 Respiratory 20 Rate Blood Pressure 140/77 133/92 (mmHg) O2 Sat by Pulse 98 Oximetry 04/10/17 04/10/17 04/10/17 15:56 16:00 16:12 Temperature Pulse Rate 79 Respiratory 18 Rate Blood Pressure 153/76 (mmHg) O2 Sat by Pulse 94 Oximetry 04/10/17 04/10/17 16:13 16:27 Temperature Pulse Rate Respiratory 18 Rate Blood Pressure 125/79 (mmHg) O2 Sat by Pulse Oximetry Oxygen Devices in Use Now: Nasal Cannula Appearance: Mild distress Eyes: No Scleral Icterus, PERRLA Ears/Nose/Mouth/Throat: NL Teeth, Lips, Gums Neck: NL Appearance and Movements; NL JVP, Trachea Midline Respiratory: Symmetrical Chest Expansion and Respiratory Effort, Clear to Auscultation Cardiovascular: NL Sounds; No Murmurs; No JVD, RRR, No Edema Abdominal: NL Sounds; No Tenderness; No Distention Skin: No Rash or Ulcers Neurological: Alert and Oriented x 3 Lines/Tubes/Other Access: Clean, Dry and Intact Other Access - Right radial cath site Nutrition: Taking PO's Result Diagrams: 04/08/17 10:12 04/08/17 10:12 Additional Lab and Data: EKG Data: EKG INTERPRETATION ECG Report Patient Name ABDIAZIZ ADAMS Birthdate 1945 Sex F Order Number [id number] Date of ECG 04/09/2017 04:16:12 Interpretation Sinus rhythm.normal P axis, V-rate 60- 99 Borderline repolarization - BORDERLINE ECG - ECG NEEDS E-SIGNING Please go to [facility] [place] website to view the EKG image Assess/Plan/Problems-Billing Assessment: This is a 72 year old female with hx of HTN, ICH 2/2 aneurysm, anxiety and HLP that presented with midsternal chest burning, radiating to left axilla with positive troponins and positive cardiac cath today with unstable angina. - Patient Problems (1) Chest pain Code(s): R07.9 - CHEST PAIN, UNSPECIFIED SNOMED Code(s): 07133940 Comment: - Positive cath with [address] Hughes - Will be transferred to [place] when bed available - Continue NTG paste, O2, morphine, zofran and oxygen - Had episode of low BP after NTG SL, with some diaphoresis and nausea, improved now, BP 108/48, had zofran, continue IVF - Bedrest, supportive care (2) Hypertension Code(s): I10 - ESSENTIAL (PRIMARY) HYPERTENSION SNOMED Code(s): 64303551 Comment: - Continue norvasc and metoprolol - Monitor while on NTG (3) Anxiety Code(s): F41.9 - ANXIETY DISORDER, UNSPECIFIED SNOMED Code(s): 18925005 Comment: - Continue prozac daily and xanax PRN (4) History of cerebral aneurysm repair Code(s): Z98.890 - OTHER SPECIFIED POSTPROCEDURAL STATES; Z86.79 - PERSONAL HISTORY OF OTHER DISEASES OF THE CIRCULATORY SYSTEM SNOMED Code(s): 067155612 Comment: - ICH in 2006, s/p coil in 2006, stable (5) GERD (gastroesophageal reflux disease) Code(s): K21.9 - GASTRO-ESOPHAGEAL REFLUX DISEASE WITHOUT ESOPHAGITIS SNOMED Code(s): 880258716 Comment: - Continue pepcid IV BID (6) Nausea and vomiting Status: Acute Code(s): R11.2 - NAUSEA WITH VOMITING, UNSPECIFIED SNOMED Code (s): 08389987 Comment: - Zofran PRN - IVF, gentle hydration at maintenance - Bowel regimen Status and Disposition: Transfer to [place] via ALS ambulance when bed available. Risks and benefits of transfer explained to patient and her son and they are in agreement with plan. Counseling and/or Coordination of Care Minutes: coordinated with patient, son and staff
[2017-04-10] MEDS ORDERED: LORazepam INJ* 2 MG/ML 1 ML VIAL IV PUSH ONE (17:51)
[2017-04-10 18:18] VITALS: BP 152/76
--- NOTE | 2017-04-10 18:22 | DS ---
AMENDED REPORT NOW INCLUDES COSIGNER DESIGNATION - ESIGNED BEFORE ADJUSTMENT CC: Dr. Zambrano * TRANSFER SUMMARY DATE OF ADMISSION: 04/08/2017 DATE OF TRANSFER: 04/10/2017 PRIMARY CARE PROVIDER: Dr. Ulises Zambrano ATTENDING DURING THIS ADMISSION: Dr. Glenn Kowalski * (DICTATED BY SOHAIL GIVENS NP) SPECIALISTS: Involved in care this admission: 1. Dr. Jayy Hughes, Cardiology 2. Dr. Cassandra Hughes, Interventional Cardiology HOSPITAL COURSE: This is a very pleasant 72-year-old female patient who came in 2 days ago with report from the Urgent Care that she had visited for complaint of substernal chest burning sensation. Patient stated she has had history of GERD and last month had similar pain. She was placed on a PPI for her GERD-like symptoms. She had run out of her GERD medications and had gone back to the Urgent Care seeking a refill of her prescription. However, they did an EKG at that time which noted some changes. She was referred to the Emergency Department for evaluation. Again, EKG was noted to have some changes. Also, troponin was drawn as well and her first troponin at that time had a slight bump at 0.07. Patient was admitted for chest pain rule out ACS. Serial troponins were recorded. Subsequently were 0.16, 0.21, 0.23 and 0.22. Cardiology was consulted, Dr. Jayy Hughes. Patient was readied for stress test after her troponins leveled off. Stress test was positive and then it was decided that she would have a diagnostic catheterization. She under-went that procedure today on 04/10/[address] Hughes informed us that patient has three-vessel disease and would require surgical consultation. He obtained an accepting physician at [facility] with Dr. Izaguirre who will be accepting patient for surgical consultation and likely coronary artery bypass graft surgery. Please see today's note for physical exam, vital signs and laboratories. Patient was coordinated with transfer center, bed was obtained at approximately 5:30 this evening. Patient was coordinated through [facility]. She will go to ALS transport to [facility] being monitored. Also important to note patient had refractory chest pain and angina for the duration of her admission. She has been administered nitrates, morphine, oxygen, antiemetics and fluids in anticipation of her transport. She is, however, stable for transport and she has given consent for her transport to other facility. Again, please see today' s note for the rest of her physical exam and disposition. Patient transferred in stable condition. All questions were answered. Her son is at the bedside also for consent for today's transfer. SOHAIL GIVENS, JOAN [id number]/[facility] #: [id number] [facility]
--- NOTE | 2017-04-13 02:07 | CATH ---
CC: Dr. Zambrano; Dr. Hughes CATH REPORT: DATE OF PROCEDURE: 04/10/17 PRIMARY: Dr. Zambrano. POINT OF SALE ASSOCIATE: Dr. Hughes. PROCEDURES: Right radial artery access, bilateral selective coronary cineangiography, left heart cat heterization, left ventriculography. HISTORY: A 72-year-old woman presenting with non-ST elevation infarct, peak troponin of 0.23. Jolanta can reported a moderate anterolateral partially reversible defect. PROCEDURE ACCESS: Right radial artery, sheath 6F slender. MEDICATIONS: 1. Lidocaine. 2. IV Versed. 3. IV fentanyl. 4. Heparin 3000 units, nitroglycerin 300 mcg, verapamil 3 mg IA. 5. Aspirin 81 mg p.o. DIAGNOSTIC CATHETER: 5F TIG4, 5F pigtail. HEMODYNAMICS: Initial BP 138/73, LV 156/2-21, no aortic valve gradient on pullback. ANGIOGRAPHY: RCA. The RCA is moderately calcified, large, dominant with a proximal 60% stenosis. D istally, there is a moderate PDA and posterolateral. Left main. The left main is short, normal. LAD. The LAD has a proximal 75% stenosis followed by a mid LAD tubular 70% stenosis, the LAD ends pa st the apex. Circumflex. The circumflex is not dominant, moderate, has a moderate stenosis straddling the origin of a large marginal branch after which, the circumflex has an 80% to 90% stenosis with MADDI-2 flow co mpromising a large posterolateral branch. LV gram: Fairly localized moderate mid inferior wall hypokinesis, estimated LVEF 45% to 50%. CONCLUSION: 1. Three-vessel disease. 2. Mildly impaired LV systolic function. 3. Successful right radial artery access. [id number]/[facility] #: [id number]
== END 2017-04-10 18:23 | disposition short-term general hospital (02) | DRG 287 ==
LOC: ED 09:31 → MEDTELE 11:34 → OBSVTOIN 04-09 10:00
PROVIDERS: ADMIT Internal Medicine; ATTEND Internal Medicine
PROC: 4A023N7 Measurement of Cardiac Sampling and Pressure, Left Heart, Percutaneous Approach (ICD-10-PCS; 2017-04-10)
PROC: B2151ZZ Fluoroscopy of Left Heart using Low Osmolar Contrast (ICD-10-PCS; 2017-04-10)
PROC: B2111ZZ Fluoroscopy of Multiple Coronary Arteries using Low Osmolar Contrast (ICD-10-PCS; principal; 2017-04-10 12:00)
DX: I25.110 Atherosclerotic heart disease of native coronary artery with unstable angina pectoris (principal); E78.5 Hyperlipidemia, unspecified; I10 Essential (primary) hypertension; F41.9 Anxiety disorder, unspecified; K21.9 Gastro-esophageal reflux disease without esophagitis; K59.00 Constipation, unspecified; R11.2 Nausea with vomiting, unspecified; Z82.49 Family history of ischemic heart disease and other diseases of the circulatory system; Z82.3 Family history of stroke; Z87.891 Personal history of nicotine dependence; Z86.73 Personal history of transient ischemic attack (TIA), and cerebral infarction without residual deficits; Z95.810 Presence of automatic (implantable) cardiac defibrillator
CPT/HCPCS: 36415; 71045; 78452; 80053; 80061; 82550; 82553; 83735; 83880; 84436; 84443; 84484; 85025; 85730; 90686; 93005; 93017; 93458; 99156; 99157; 99284; A9270-GY; A9502; G0378; J0280; J1644; J1650; J2060; J2250; J2270; J2405; J2785; J3010